=== PATIENT | female | born 1935 | race Caucasian/White ===

== ENCOUNTER 2016-05-30 16:42 | Emergency (ER) | payer MEDICARE, MEDICAID ==
[~2016-05-30] VITALS: Ht 147.3 cm; Wt 56.5 kg
[~2016-05-30 16:42] MED LIST: AP25; ATOR20TA65 PO; CALC0.253 PO; DILT240C3; DOCU100C21; FURO-151 PO; NIFE60TA7 PO; SEVE800T8 PO; TRAZ-129 PO; VALS320T9
[2016-05-30 18:45] VITALS: BP 200/90
[2016-05-30 19:10] LABS: BASOPHILS % 0.9 % (0.0-2.0); EOSINOPHILS % 2.5 % (0.0-5.0); HEMATOCRIT. 24.1 % (36.0-48.0); HEMOGLOBIN. 8.1 g/dL (12.0-16.0); LYMPHOCYTES % 16.4 % (20.0-50.0); MEAN CORPUSCULAR HGB CONC 33.7 g/dL (31.0-37.0); MEAN CORPUSCULAR VOLUME 91.9 fL (81.0-99.0); MEAN PLATELET VOLUME 6.6 fl (7.4-10.4); MONOCYTES % 7.9 % (2.0-8.0); NEUTROPHILS % 72.3 % (40.0-76.0); PLATELET 226 x1000/uL (130-400); RED BLOOD CELL COUNT 2.62 mill/uL (4.2-5.4); RED CELL DISTRIBUTION WIDTH 17.3 % (11.6-14.6); WHITE BLOOD COUNT 6.8 x1000/uL (4.5-11.0)
[2016-05-30 19:17] LABS: CALCIUM 8.4 mg/dL (8.5-10.1); INR 1.1; PROTHROMBIN TIME 11.6 sec
== END 2016-05-30 20:05 | disposition home or self-care (01) ==
LOC: ER 19:41
DX: D64.89 Other specified anemias (principal); N18.6 End stage renal disease; I10 Essential (primary) hypertension; E11.9 Type 2 diabetes mellitus without complications; F03.90 Unspecified dementia, unspecified severity, without behavioral disturbance, psychotic disturbance, mood disturbance, and anxiety; Z99.2 Dependence on renal dialysis; Z79.899 Other long term (current) drug therapy
CPT/HCPCS: 36415; 80048; 85025; 85610; 86850; 86900; 99284